=== PATIENT | male | born 1965 | race Caucasian/White ===

== ENCOUNTER 2017-06-02 06:16 | Day surgery (SDC) | payer BC, OTHER ==
[2017-06-02] MEDS ORDERED: fentaNYL 100 MCG/2 ML SDV ONE (07:27)
[2017-06-02] MEDS ORDERED: Midazolam 1 MG/ML 2 ML SDV ONE (07:27)
[2017-06-02] MEDS ORDERED: Propofol 200 MG/20 ML SDV ONE ×3 (07:27→08:01)
[2017-06-02] MEDS ORDERED: Lactated Ringers 1,000 ML IV SCH (07:30)
[2017-06-02 10:40] VITALS: BP 134/90
--- NOTE | 2017-06-02 14:28 | OR ---
DATE OF PROCEDURE: 06/02/2017 PREOPERATIVE DIAGNOSES: 1. Gastroesophageal reflux disease. 2. Colon cancer screening. POSTOPERATIVE DIAGNOSES: 1. Mild gastritis. 2. Antral polyp. 3. Gastroesophageal reflux disease. 4. Colonic diverticulosis. PROCEDURE PERFORMED: 1. Esophagogastroduodenoscopy with biopsy resection of small antral polyp. 2. Biopsy of the antrum for CLOtest and for pathology to look for Helicobacter pylori. 3. Biopsy of gastroesophageal junction. 4. Colonoscopy to the cecum. SURGEON: Tone Gil MD. ANESTHESIA: IV anesthesia with monitored anesthesia care. INDICATION: This 51-year-old white male is referred for upper and lower endoscopy. Indication for upper endoscopy is gastroesophageal reflux disease. Indication for colonoscopy is colon cancer screening. He says his last colonoscopic exam was done 13 years ago. He has been started on a proton pump inhibitor. I counseled him for upper and lower endoscopy with possible biopsy and/or polypectomy including risks and alternatives, and he gave his informed consent to proceed. DESCRIPTION OF PROCEDURE: The patient was placed in the left lateral decubitus position. IV anesthesia was administered by the Anesthesia Service. Time-out was held. The flexible video Olympus upper endoscope was passed through his mouth, down his esophagus, and into his stomach. The scope was easily passed through the pylorus into duodenum, reaching its third portion. The scope was slowly withdrawn, examining the mucosa throughout. The duodenal mucosa appeared unremarkable. The scope was brought back up through the pylorus into the antrum. He had an antral polyp which was removed with the biopsy forceps. Additionally, there was a fine erythema present consistent with mild gastritis. This despite being on a proton pump inhibitor. We did obtain antral biopsies for CLOtest and for pathology to look for Helicobacter pylori. The scope was retroflexed. The proximal stomach appeared unremarkable except for the mild gastritis. The scope was straightened and brought up to the GE junction. Despite his complaint of GERD, this appeared fairly unremarkable. We, did because of his complaints, obtained multiple, totalling 6, biopsies of the gastroesophageal junction. The scope was then brought proximally up through the remainder of the esophagus, which otherwise appeared unremarkable and was removed. Next a rectal exam was performed, which was unremarkable. The flexible video Olympus colonoscope was introduced through his anus, up his rectum, and out his colon all way to the cecum. In the left colon, we saw a single diverticulum. There was no bleeding or inflammation associated with it. Once the cecum was reached, the scope was slowly withdrawn, examining the mucosa throughout. No additional mucosal abnormalities were noted. The scope was retroflexed in the rectum with the distal rectum appearing unremarkable. The scope was straightened and removed. He tolerated the procedure well. Tone Gil MD /[id number]
== END 2017-06-02 10:10 | disposition home or self-care (01) ==
LOC: JP.SDS 06:16
PROVIDERS: ATTEND Surgery
DX: Z12.11 Encounter for screening for malignant neoplasm of colon (principal); K29.50 Unspecified chronic gastritis without bleeding; K57.30 Diverticulosis of large intestine without perforation or abscess without bleeding; I10 Essential (primary) hypertension; K21.9 Gastro-esophageal reflux disease without esophagitis
CPT/HCPCS: 43239; 45378; 87081; J2250; J2704; J3010; J7120; 88305; 88342

== ENCOUNTER 2019-08-31 19:36 | Emergency (ER) | payer BC ==
[2019-08-31 19:51] VITALS: BP 161/99; PULSE 71
--- NOTE | 2019-08-31 20:22 | EDM.PDOC ---
ED HPI GENERAL MEDICAL PROBLEM - General Chief Complaint: Cardiovascular Problem Stated Complaint: BLOOD CLOT IN RIGHT LEG Time Seen by Provider: 08/31/19 20:19 Source of Information: Reports: Patient History Limitations: Reports: No Limitations - History of Present Illness INITIAL COMMENTS - FREE TEXT/NARRATIVE: pt has been doing alot of plowing and getting in and out of a truck. He has developed some discomfort in the area by the the inner rt knee. He feels like it looks a little puffy. Onset: Other (pt first noticed this today. He did have a blood clot in Sept which was treated by Dr Self. ) Duration: Hour(s): Location: Reports: Lower Extremity, Right Associated Symptoms: Reports: No Other Symptoms - Related Data Allergies Allergy/AdvReac Type Severity Reaction Status Date / Time No Known Allergies Allergy Verified 08/31/19 20:01 Home Meds: Home Meds Hydrochlorothiazide 25 mg PO DAILY 02/22/14 [History] Multivitamin [Multi-Vitamin Daily] 1 each PO DAILY 02/01/15 [History] Omeprazole [priLOSEC OTC] 40 mg PO DAILY 02/01/15 [History] Metoprolol Tartrate 25 mg PO BID 02/17/15 [History] Aspirin [Adult Low Dose Aspirin EC] 81 mg PO DAILY 06/01/17 [History] Losartan [Cozaar] 50 mg PO DAILY 06/01/17 [History] Rivaroxaban [Xarelto] 1 tab PO BID 08/31/19 [History] Past Medical History HEENT History: Reports: Allergic Rhinitis, Impaired Vision Cardiovascular History: Reports: Hypertension Gastrointestinal History: Reports: GERD Neurological History: Reports: Migraines Endocrine/Metabolic History: Reports: Obesity/BMI 30+ - Infectious Disease History Infectious Disease History: Reports: Chicken Pox, Measles, Mumps - Past Surgical History HEENT Surgical History: Reports: None Cardiovascular Surgical History: Reports: None, Vascular Surgery GI Surgical History: Reports: Cholecystectomy, Colonoscopy, EGD Endocrine Surgical History: Reports: None Neurological Surgical History: Reports: None Social & Family History - Tobacco Use Smoking Status *Q: Never Smoker - Caffeine Use Caffeine Use: Reports: Coffee ED ROS GENERAL - Review of Systems Review Of Systems: See Below Constitutional: Reports: No Symptoms HEENT: Reports: No Symptoms Respiratory: Reports: No Symptoms Cardiovascular: Reports: No Symptoms Endocrine: Reports: No Symptoms GI/Abdominal: Reports: No Symptoms : Reports: No Symptoms Musculoskeletal: Reports: Other (pain just above the inner knee area and some puffiness. ) Skin: Reports: No Symptoms ED EXAM, GENERAL - Physical Exam Exam: See Below Free Text/Narrative:: pt arrived with pain on the inner area just above the rt knee. The pt thinks this looks puffy. Exam Limited By: No Limitations General Appearance: Alert, Anxious, Mild Distress Extremities: Other ( tender on the inner aspect of the thigh--mild, Slght puffiness in the area. The pt was just switched to xarelto from warfin because pt was having alot of side effects from the coumadin. ) Neurological: Alert, Oriented, Normal Cognition Course - Vital Signs Last Recorded V/S: Last Vital Signs Temp 35.6 C 08/31/19 20:08 Pulse 71 08/31/19 20:08 Resp 16 08/31/19 20:08 BP 161/99 H 08/31/19 20:08 Pulse Ox 98 08/31/19 20:08 - Orders/Labs/Meds Orders: Active Orders 24 hr Category Date Time Status VL Duplex Lwr Ext Veins Ltd Rt [US] Stat Exams 08/31/19 20:17 Ordered Labs: Laboratory Tests 08/31/19 Range/Units 20:17 D-Dimer, Quantitative < 100 (0.0-400.0) ng/mL - Re-Assessments/Exams Free Text/Narrative Re-Assessment/Exam: 08/31/19 21:55 US of the rt leg was obtained and compared to the old US. This was improved from his previos US. There did not appear to be any new clots. His ddimer was normal. Departure - Departure Time of Disposition: 21:57 Disposition: Home, Self-Care 01 Condition: Fair Clinical Impression: Pain in leg, unspecified Referrals: PCP,None [Primary Care Provider] - Forms: ED Department Discharge Care Plan Goals: elevate when sitting when possible, increase walking, continue with xarelto Sepsis Event Note - Evaluation Sepsis Screening Result: No Definite Risk - Focused Exam Vital Signs: Vital Signs Temp Pulse Resp BP Pulse Ox 08/31/19 20:08 35.6 C 71 16 161/99 H 98 08/31/19 19:50 35.6 C 71 16 161/99 H 98 Date Exam was Performed: 08/31/19 Time Exam was Performed: 21:55 - My Orders Last 24 Hours: My Active Orders 08/31/19 20:17 VL Duplex Lwr Ext Veins Ltd Rt [US] Stat - Assessment/Plan Last 24 Hours: My Active Orders 08/31/19 20:17 VL Duplex Lwr Ext Veins Ltd Rt [US] Stat
--- NOTE | 2019-08-31 22:16 | CRLUS ---
INDICATION: Pain just above the right knee. History of DVT. COMPARISON: June 17, 2019. TECHNIQUE: A compression venous ultrasound exam was performed of the right lower extremity using jensen-scale imaging, color Doppler and spectral Doppler analysis. FINDINGS: Sonographic imaging of the right lower extremity demonstrates normal compressibility and color Doppler venous blood flow within the common femoral vein, and deep femoral vein. Within the thigh, the femoral vein is patent and compressible. At a lower level, the popliteal vein also shows normal compressibility and color Doppler venous blood flow. Probable chronic thrombus is identified within the right posterior tibial vein as well as in the greater saphenous vein. Thrombus was identified within these vessels on the previous study. Limited imaging of the contralateral groin demonstrates a normal spectral waveform and color Doppler venous blood flow within the left common femoral vein. IMPRESSION: Probable chronic thrombus identified within the right posterior tibial vein and right greater saphenous vein. Dictated by Yadira Lucio MD @ Aug 31 2019 10:10PM Signed by Dr. Yadira Lucio @ Aug 31 2019 10:14PM
== END 2019-08-31 23:03 | disposition home or self-care (01) ==
LOC: JP.ED 19:36
DX: M25.561 Pain in right knee (principal); I10 Essential (primary) hypertension; K21.9 Gastro-esophageal reflux disease without esophagitis; E66.9 Obesity, unspecified; Z68.42 Body mass index [BMI] 45.0-49.9, adult; Z79.01 Long term (current) use of anticoagulants; Z79.82 Long term (current) use of aspirin; Z79.899 Other long term (current) drug therapy
CPT/HCPCS: 36415; 85379; 93971-RT; 99284-25

== ENCOUNTER 2019-11-16 10:06 | Emergency (ER) | payer BC ==
[2019-11-16 10:17] VITALS: BP 148/103; PULSE 66
--- NOTE | 2019-11-16 10:21 | EDM.PDOC ---
ED HPI GENERAL MEDICAL PROBLEM - General Chief Complaint: ENT Problem Stated Complaint: NOSE BLEED Time Seen by Provider: 11/16/19 10:20 Source of Information: Reports: Patient History Limitations: Reports: No Limitations - History of Present Illness INITIAL COMMENTS - FREE TEXT/NARRATIVE: 53 years old male patient on Zaroxolyn for DVT presented to the ER with a chief complaint of left nostril bleeding started this morning. He said he picked his nose this morning, started bleeding. Denies any dizziness. Denies any chest pain or shortness breath. Denies any cough or fever. Denies any bleeding anywhere else. No other symptom. - Related Data Allergies Allergy/AdvReac Type Severity Reaction Status Date / Time No Known Allergies Allergy Verified 11/16/19 10:19 Home Meds: Home Meds Hydrochlorothiazide 25 mg PO DAILY 02/22/14 [History] Multivitamin [Multi-Vitamin Daily] 1 each PO DAILY 02/01/15 [History] Omeprazole [priLOSEC OTC] 40 mg PO DAILY 02/01/15 [History] Metoprolol Tartrate 25 mg PO BID 02/17/15 [History] Aspirin [Adult Low Dose Aspirin EC] 81 mg PO DAILY 06/01/17 [History] Losartan [Cozaar] 50 mg PO DAILY 06/01/17 [History] Rivaroxaban [Xarelto] 1 tab PO DAILY 08/31/19 [History] Past Medical History HEENT History: Reports: Allergic Rhinitis, Impaired Vision Cardiovascular History: Reports: Hypertension Gastrointestinal History: Reports: GERD Neurological History: Reports: Migraines Endocrine/Metabolic History: Reports: Obesity/BMI 30+ - Infectious Disease History Infectious Disease History: Reports: Chicken Pox, Measles, Mumps - Past Surgical History HEENT Surgical History: Reports: None Cardiovascular Surgical History: Reports: None, Vascular Surgery GI Surgical History: Reports: Cholecystectomy, Colonoscopy, EGD Endocrine Surgical History: Reports: None Neurological Surgical History: Reports: None Social & Family History - Caffeine Use Caffeine Use: Reports: Coffee ED ROS ENT - Review of Systems Review Of Systems: Comprehensive ROS is negative, except as noted in HPI. ED EXAM, ENT - Physical Exam Exam: See Below Exam Limited By: No Limitations General Appearance: Alert, WD/WN, No Apparent Distress Ears: Normal External Exam Nose: Normal Inspection, Normal Mucousa, Dried Blood. No: Active Bleeding Mouth/Throat: Normal Inspection, Normal Gums, Normal Lips, Normal Oropharynx, Normal Teeth Head: Atraumatic, Normocephalic Neck: Normal Inspection, Supple, Non-Tender, Full Range of Motion Respiratory/Chest: No Respiratory Distress, Lungs Clear, Normal Breath Sounds, No Accessory Muscle Use, Chest Non-Tender Cardiovascular: Normal Peripheral Pulses, Regular Rate, Rhythm, No Edema, No Gallop, No JVD, No Murmur, No Rub GI/Abdominal: Normal Bowel Sounds, Soft, Non-Tender, No Organomegaly, No Distention, No Abnormal Bruit, No Mass Extremities: Normal Inspection, Normal Range of Motion, Non-Tender, No Pedal Edema, Normal Capillary Refill Neurological: Alert, Oriented, CN II-XII Intact, Normal Cognition, Normal Gait, Normal Reflexes, No Motor/Sensory Deficits Course - Vital Signs Last Recorded V/S: Last Vital Signs Temp 36.2 C 11/16/19 10:21 Pulse 66 11/16/19 10:21 Resp 18 11/16/19 10:21 BP 148/103 H 11/16/19 10:21 Pulse Ox 96 11/16/19 10:21 - Radiology Interpretation Free Text/Narrative:: Patient was seen and examined shortly after arrival. Stable. Bleeding stopped. No active bleeding. Patient was observed for a while and ER. No active bleeding. Advised not to blow his nose hard. No nose aching or itching. Air humidifier, apply nasal pressure was nasal clamp for 20-30 minutes if bleeding starts again. Come back for any concern or any worsening symptom. Patient agrees with the plan. Stable for discharge. Departure - Departure Time of Disposition: 10:35 Disposition: Home, Self-Care 01 Condition: Good Clinical Impression: Epistaxis - Discharge Information *PRESCRIPTION DRUG MONITORING PROGRAM REVIEWED*: Not Applicable *COPY OF PRESCRIPTION DRUG MONITORING REPORT IN PATIENT [place]: Not Applicable Instructions: Nosebleed, Adult Referrals: PCP,None [Primary Care Provider] - Forms: ED Department Discharge Additional Instructions: Advised not to blow his nose hard. No nose picking or itching. Air humidifier, apply nasal pressure was nasal clamp for 20-30 minutes if bleeding starts again. Come back for any concern or any worsening symptom Sepsis Event Note - Focused Exam Vital Signs: Vital Signs Temp Pulse Resp BP Pulse Ox 11/16/19 10:21 36.2 C 66 18 148/103 H 96 11/16/19 10:16 36.2 C 66 18 148/103 H 96 Date Exam was Performed: 11/16/19 Time Exam was Performed: 10:32 - Assessment/Plan Plan: Advised not to blow his nose hard. No nose aching or itching. Air humidifier, apply nasal pressure was nasal clamp for 20-30 minutes if bleeding starts again. Come back for any concern or any worsening symptom
[2019-11-16] MEDS ORDERED: Oxymetazoline 0.05% Nasal Spray 30 ML Bottle NAS ONE (12:17)
== END 2019-11-16 12:40 | disposition home or self-care (01) ==
LOC: JP.ED 10:06
DX: R04.0 Epistaxis (principal); I10 Essential (primary) hypertension; K21.9 Gastro-esophageal reflux disease without esophagitis; E66.9 Obesity, unspecified; Z68.41 Body mass index [BMI] 40.0-44.9, adult; Z79.899 Other long term (current) drug therapy; Z79.82 Long term (current) use of aspirin; Z79.01 Long term (current) use of anticoagulants; Z86.718 Personal history of other venous thrombosis and embolism
CPT/HCPCS: 99283; A9270

== ENCOUNTER 2022-03-02 15:51 | Emergency (ER) | payer BC ==
[2022-03-02 16:10] VITALS: BP 147/84; PULSE 72
== END 2022-03-02 17:50 | disposition home or self-care (01) ==
LOC: JP.ED 15:51
DX: S30.1XXA Contusion of abdominal wall, initial encounter (principal); I10 Essential (primary) hypertension; K21.9 Gastro-esophageal reflux disease without esophagitis; E66.9 Obesity, unspecified; Z68.41 Body mass index [BMI] 40.0-44.9, adult; Z79.899 Other long term (current) drug therapy; X58.XXXA Exposure to other specified factors, initial encounter
CPT/HCPCS: 99282; 99283

== ENCOUNTER 2022-03-06 06:08 | Emergency (ER) | payer BC ==
[~2022-03-06 06:08] MED LIST: EPINEPHrine 1:10,000 1 MG/10 ML Syringe IV ONE; Succinylcholine 200 MG/10 ML MDV ONE
[2022-03-06] MEDS ORDERED: EPINEPHrine 1:10,000 1 MG/10 ML Syringe IV ONE ×4 (06:11→06:23)
[2022-03-06 06:41] LABS: ESTIMATED GFR 36 mL/min (>60)
[2022-03-06 06:42] LABS: TROPONIN I HIGH SENSITIVITY 105.7 pg/mL (<=60.3)
== END 2022-03-06 13:53 | disposition expired ==
LOC: JP.ED 06:08
DX: I46.9 Cardiac arrest, cause unspecified (principal); I10 Essential (primary) hypertension; K21.9 Gastro-esophageal reflux disease without esophagitis; E66.9 Obesity, unspecified; Z68.41 Body mass index [BMI] 40.0-44.9, adult; Z79.82 Long term (current) use of aspirin; Z79.899 Other long term (current) drug therapy
CPT/HCPCS: 36415; 80053; 82803; 84484; 85025; 92950; 99285; J0171; J0330